=== PATIENT | male | born 1955 | race Caucasian/White ===

== ENCOUNTER 2020-03-27 07:42 | Day surgery (SDC) | payer BC ==
[2020-03-20 14:28] LABS: BASOPHILS # (AUTO) 0.1 X10'3 (0-0.2); EOSINOPHILS # (AUTO) 0.2 X10'3 (0-0.9); EOSINOPHILS % (AUTO) 3.4 % (0-6); LYMPHOCYTES # (AUTO) 1.7 X10'3 (1.1-4.8); MEAN CORPUSCULAR HEMOGLOBIN 30.4 PG (27.0-31.0); MEAN CORPUSCULAR HGB CONC 34.2 g/dL (33.0-36.5); MEAN CORPUSCULAR VOLUME 88.9 FL (78-98); MEAN PLATELET VOLUME 7.3 FL (7.4-10.4); MONOCYTES # (AUTO) 0.5 X10'3 (0-0.9); MONOCYTES % (AUTO) 8.2 % (2-12); NEUTROPHILS # (AUTO) 3.7 X10'3 (1.8-7.7); NEUTROPHILS % (AUTO) 60.4 % (42-75); PRE OP HEMATOCRIT 45.7 % (42.0-52.0); PRE OP HEMOGLOBIN 15.6 g/dL (14.0-17.9); PRE OP PLATELET COUNT 121 X10'3 (140-440); RED BLOOD COUNT 5.14 X10'6 (4.70-6.10)
[2020-03-20 14:41] LABS: ALBUMIN 4.3 G/DL (3.4-5.0); ALBUMIN/GLOBULIN RATIO 1.4 (1.1-1.5); ALKALINE PHOSPHATASE 54 IU/L (46-116); BLOOD UREA NITROGEN 20 MG/DL (7-18); BUN/CREATININE RATIO 21.5 (5.4-32.0); CALCIUM 8.8 MG/DL (8.5-10.1); CHLORIDE 104 MMOL/L (99-107); CREATININE 0.93 MG/DL (0.60-1.10); PRE OP ALT 31 U/L (30-65); PRE OP ANION GAP 5 (8-16); PRE OP AST 24 U/L (10-37); PRE OP BILIRUB, TOTAL 1.1 MG/DL (0.0-1.0); PRE OP GLUCOSE 86 MG/DL (70-104); PRE OP SODIUM 137 MMOL/L (135-145); TOTAL CARBON DIOXIDE 27.6 MMOL/L (24-32); TOTAL PROTEIN 7.4 G/DL (6.4-8.2); eGFR 82 ML/MIN
[~2020-03-27] VITALS: Ht 190.5 cm; Wt 86.2 kg
[2020-03-27] VITALS (14 sets, daily range): BP systolic 113–134; BP diastolic 69–87
[~2020-03-27 07:42] MED LIST: BUPIVAcaine/PF 2.5 mg/ml (0.25%) 30ml vial ONE; LIDOcaine 1% 30ml preserv. free vial ONE; NO HOME MEDS; cefazolin/dext.iso 2gm/50ml 50 ML IV ONE; famotidine 20mg tablet PO ONE; ringers solution, lacted 1,000 ML IV SCH
[2020-03-27] MEDS ORDERED: sevoflurane 250ml liquid IH ONE (09:31)
[2020-03-27] MEDS ORDERED: rocuronium 10mg/ml inj IV ONE (09:33)
[2020-03-27] MEDS ORDERED: propofol inj 20 ML IV ONE (09:33)
[2020-03-27] MEDS ORDERED: fentaNYL/PF 50MCG/1 ML 2ML syringe ONE (09:33)
[2020-03-27] MEDS ORDERED: midazolam 2 mg/2 ml injection ONE (09:33)
[2020-03-27] MEDS ORDERED: dexamethasone sod phosphate 4mg/ml inj. ONE (10:40)
[2020-03-27] MEDS ORDERED: ondansetron/PF 4mg/2ml inj ONE (10:40)
[2020-03-27] MEDS ORDERED: neostigmine methylsulfate 1 MG/ML 10ml vial ONE (10:41)
[2020-03-27] MEDS ORDERED: glycopyrrolate 0.2mg/ml inj ONE (10:42)
[2020-03-27] MEDS ORDERED: proCHLORperazine 10 MG/2 ml inj IV PRN (10:45)
[2020-03-27] MEDS ORDERED: ringers solution, lacted 1,000 ML IV SCH (10:45)
[2020-03-27] MEDS ORDERED: morphine 2 MG/ML inj. syringe IV PRN (10:45)
[2020-03-27] MEDS ORDERED: meperidine/PF 25mg/ml syringe IV PRN ×3 (10:45)
[2020-03-27] MEDS ORDERED: ondansetron/PF 4mg/2ml inj IV PRN (10:45)
[2020-03-27] MEDS ORDERED: morphine 4 MG/ML inj SYRINge IV PRN (10:45)
--- NOTE | 2020-03-27 10:57 | NUR ---
Received from OR via [facility], accompanied by Anesthesiologist DR BURNETTE and report given by Anesthesiologist. PT DROWSY, DENIES PAIN, ABDOMEN W/3 LAP SITES CDI. Addendum: 03/27/20 at 1114 by Esme Hickey RN Amended: Links added.
[2020-03-27] MEDS ORDERED: HYDROcodone/acetaminophen 5mg/325mg tablet PO PRN ×2 (11:05)
--- NOTE | 2020-03-27 13:10 | NUR ---
PT UP TO BATHROOM ATTEMPT VOID, UNSUCCESSFUL, PT REQUESTING MORE TIME TO VOID, BACK TO ROOM, COFFEE AND WATER GIVEN TO PT PER HIS REQUEST. Addendum: 03/27/20 at 1311 by Esme Hickey RN Amended: Links added.
--- NOTE | 2020-03-27 14:57 | NUR ---
PT UP TO BATHROOM AND VOID X 2, BLADDER SCANNED PRIOR TO VOIDS, [phone] PRE VOID, 108 POST VOID, DR FAJARDO AWARE AND OKAYED FOR PT TO GO HOME, D/C INSTRUCTIONS GIVEN AND GONE OVER W/PT WHO VERBALIZED UNDERSTANDING, PT D/CD TO HOME VIA W/C TO PRIVATE VEHICLE W/O INCIDENT. Addendum: 03/27/20 at 1511 by Esme Hickey RN Amended: Links added.
== END 2020-03-27 14:57 | disposition home or self-care (01) ==
LOC: PAS 07:42
PROVIDERS: ATTEND Surgery
DX: K40.90 Unilateral inguinal hernia, without obstruction or gangrene, not specified as recurrent (principal); K40.91 Unilateral inguinal hernia, without obstruction or gangrene, recurrent; Z87.891 Personal history of nicotine dependence; R10.9 Unspecified abdominal pain
CPT/HCPCS: 36415; 49650; 49651; 80053; 82948; 85025; 87635; 93005; C1781; J1100; J2001; J2250; J2405; J2704; J2710; J3010; J3490; J7120; S2900; A4215; A4618

== ENCOUNTER 2023-12-11 08:04 | Emergency (ER) | payer MEDICARE ==
[~2023-12-11] VITALS: Ht 190.5 cm; Wt 88.6 kg
[~2023-12-11 08:04] MED LIST changes: -BUPIVAcaine/PF 2.5 mg/ml (0.25%) 30ml vial ONE; -LIDOcaine 1% 30ml preserv. free vial ONE; -cefazolin/dext.iso 2gm/50ml 50 ML IV ONE; -famotidine 20mg tablet PO ONE; -ringers solution, lacted 1,000 ML IV SCH
[2023-12-11 08:12] VITALS: TEMP 98.4
[2023-12-11] MEDS: normal saline 1000ml 1,000 ML IV ONE (08:46)
[2023-12-11] MEDS: meclizine 12.5mg tablet PO ONE (08:46)
[2023-12-11 09:01] LABS: BASOPHILS # (AUTO) 0.1 X10'3 (0-0.2); EOSINOPHILS # (AUTO) 0.3 X10'3 (0-0.9); EOSINOPHILS % (AUTO) 4.4 % (0-6); HEMOGLOBIN 15.5 g/dl (14.0-17.9); LYMPHOCYTES # (AUTO) 2.5 X10'3 (1.1-4.8); LYMPHOCYTES % (AUTO) 34.9 % (21-51); MEAN CORPUSCULAR HEMOGLOBIN 29.5 PG (27.0-31.0); MEAN CORPUSCULAR HGB CONC 33.7 g/dL (33.0-36.5); MEAN CORPUSCULAR VOLUME 87.4 FL (78-98); MONOCYTES # (AUTO) 0.5 X10'3 (0-0.9); NEUTROPHILS # (AUTO) 3.8 X10'3 (1.8-7.7); NEUTROPHILS % (AUTO) 52.7 % (42-75); PLATELET COUNT 171 X10'3 (140-440); RED BLOOD COUNT 5.26 X10'6 (4.70-6.10); RED CELL DISTRIBUTION WIDTH 13.7 % (11.5-14.5); WHITE BLOOD COUNT 7.3 X10'3 (4.5-11.0)
[2023-12-11 09:16] LABS: APTT 25 SECONDS (22-32); PROTHROMBIN TIME 10.9 SECONDS (9.0-12.0)
[2023-12-11 09:17] LABS: ALBUMIN 4.2 G/DL (3.4-5.0); ANION GAP 9 (8-16); BLOOD UREA NITROGEN 20 MG/DL (7-18); BUN/CREATININE RATIO 19.2 (10.0-20.0); CALCIUM 9.1 MG/DL (8.5-10.1); CHLORIDE 105 MMOL/L (99-107); CREATININE 1.04 MG/DL (0.60-1.10); GLUCOSE 147 MG/DL (70-104); POTASSIUM 4.2 MMOL/L (3.5-5.1); SODIUM 138 MMOL/L (135-145); TOTAL CARBON DIOXIDE 24.1 MMOL/L (24-32); eCRCL 81 ML/MIN; eGFR 71 ML/MIN
[2023-12-11] MEDS: aspirin 325mg tablet PO ONE (09:33)
[2023-12-11] MEDS: ondansetron 4mg rapidly disintigrating tab PO ONE (09:33)
[2023-12-11] MEDS ORDERED: ONDA4TAB12 PO (12:24)
[2023-12-11] MEDS ORDERED: MECL-302 PO (12:24)
[2023-12-11 12:36] VITALS: BP 119/80; PULSE 64; RESP 18; O2SAT 94
== END 2023-12-11 12:37 | disposition home or self-care (01) ==
LOC: ER 08:05
DX: H81.392 Other peripheral vertigo, left ear (principal); R79.1 Abnormal coagulation profile; Z79.899 Other long term (current) drug therapy
CPT/HCPCS: 36415; 70450; 70551; 71045; 80048; 82948; 85025; 85610; 85730; 93005; 96360; 99285; J7030; J8597

== ENCOUNTER 2024-09-07 19:39 | Emergency (ER) | payer MEDICARE ==
[~2024-09-07] VITALS: Ht 190.5 cm; Wt 65.5 kg
[~2024-09-07 19:39] MED LIST changes: +MECL-302 PO; +ONDA-243 PO
[2024-09-07] MEDS ORDERED: ketorolac trometh 15mg/ml vial 15 MG/ML ML IM ONE (20:00)
[2024-09-07] MEDS ORDERED: PRED20TA PO (20:18)
[2024-09-07] MEDS: ketorolac trometh 30MG/ML vial 30 MG/ML VIAL IM ONE (20:28)
[2024-09-07 20:34] VITALS: BP 116/64; PULSE 70; RESP 16; TEMP 98.4; O2SAT 99
== END 2024-09-07 20:35 | disposition home or self-care (01) ==
LOC: ER 19:39
DX: M10.071 Idiopathic gout, right ankle and foot (principal)
CPT/HCPCS: 96372; 99283; J1885; L3260